=== PATIENT | male | born 1955 | race Caucasian/White ===

== ENCOUNTER 2019-07-18 02:11 | Emergency (ER) | payer OTHER, SELFPAY ==
--- NOTE | ~2019-07-18 | CT_ITS ---
EXAMINATION: CT abdomen pelvis w con DATE: 07/18/2019 03:38 INDICATION: Epigastric abdominal pain TECHNIQUE: Computed tomography (CT) of the abdomen and pelvis was performed with 100 cc Omnipaque 350 intravenous contrast. Automated exposure control and iterative reconstruction technique were employe d. Exam dose: 1595.20 mGy-cm total exam DLP. COMPARISON: 07/24/2013 CT abdomen pelvis FINDINGS: The lung bases are clear of infiltrate or consolidation. Cardiomegaly. No pericardial or pl eural effusion. No hepatic, splenic, pancreatic, adrenal or renal space-occupying mass lesion. No bile duct or pancre atic duct dilatation. Mild splenomegaly; spleen measures 14 cm approximate length. No urinary tract calculus or hydroureteronephrosis. The urinary bladder is unremarkable. There is pro state enlargement and calcification. No evidence of appendicitis. No bowel obstruction, pneumatosis, bowel wall thickening, intraperitonea l free air. Normal caliber of the abdominal aorta. No intraperitoneal or retroperitoneal or pelvic mass lesion or adenopathy or ascites. There is a fat-containing umbilical hernia measuring up to 3.4 cm vertical dimension. Diffuse idiopathic skeletal hyperostosis of the thoracic spine. Multilevel degenerative disc disease of the lumbar spine, with associated mild retrolisthesis at L2-3 and L4-5. IMPRESSION: Mild splenomegaly Reviewed, dictated and finalized at [facility]. Reviewed, dictated and finalized at [facility]. IMPRESSION: Mild splenomegaly
[2019-07-18 02:18] VITALS: BP 171/80; PULSE 84; RESP 18; TEMP 36.8; O2SAT 97
--- NOTE | 2019-07-18 02:20 | ED.ABDPAIN ---
HPI - Abdominal Pain General Chief Complaint: Abdominal Pain Stated Complaint: epigastric pain Time Seen by Provider: 07/18/19 02:20 History of Present Illness HPI narrative: Severe, 9/10 epigastric pain for the past 4 hours. Burning in quality. No radiation. Started after eating. Associated ith nausea. He tried peptobismal and ibuprofen with minimal improvement. Related Data Home Medications Medication Instructions Recorded Confirmed lithium carbonate 450 mg PO BID 03/22/19 losartan 100 mg PO DAILY 03/22/19 propranolol 20 mg PO DAILY 03/22/19 risperidone 2 mg PO HS 03/22/19 03/22/19 Allergies Allergy/AdvReac Type Severity Reaction Status Date / Time No Known Allergies Allergy Verified 07/18/19 04:17 Review of Systems Review of Systems: All systems reviewed & are unremarkable except as noted in HPI and below Constitutional: Constitutional: Denies fever(s) Cardiovascular: Cardiovascular: Denies chest pain Respiratory: Respiratory: Denies dyspnea Gastrointestinal: Gastrointestinal: Reports abdominal pain, Reports heartburn and Reports nausea PMFSH Past Medical History Medical History Bipolar disorder Depression HTN (hypertension) Leg fracture, right Surgical History Surgical History No pertinent past surgical history Social History Social History Smoking status: Never smoker Alcohol intake: current Gender identity (if verbalized by the patient): Male Exam Const: General: no acute distress and alert Nutritional Appearance: obese Orientation/consciousness: patient oriented x3 HENMT: Head: normal to inspection Resp: Effort & Inspection: normal respiratory effort Auscultation: clear to auscultation bilaterally Cardio: Rate: regular rate Rhythm: regular rhythm GI: GI Palp: Yes Soft to palpation, Yes Tenderness to palpation present (GI) (epigastric), No Guarding due to palpation present (GI) and No Rebound tenderness present Auscultation: normal bowel sounds Skin: General skin exam: normal color Neuro: General: patient oriented x3, moves all extremities and CN's II-XI intact bilaterally Speech: normal speech Extrem: General: normal to inspection Course Vital Signs Vital signs: Vital Signs Temperature 36.8 C 07/18/19 02:18 Pulse Rate 84 07/18/19 02:18 Respiratory Rate 18 07/18/19 02:18 Blood Pressure 171/80 H 07/18/19 02:18 Pulse Oximetry 97 07/18/19 02:18 Temperature 37.2 C 07/18/19 04:14 Pulse Rate 61 07/18/19 04:14 Respiratory Rate 18 07/18/19 04:14 Blood Pressure 186/65 H 07/18/19 04:14 Pulse Oximetry 97 07/18/19 04:14 MDM - Abdominal Pain MDM Narrative Medical decision making narrative: Moderate improvement in symptoms. Ct does not show any cause for symptoms. Labs unrevealing Differential Diagnosis Differential diagnosis: Likely abdominal pain and other (acute cholecystitis, gastritis, GERD, PUD) Medical Records Attestation: I reviewed the patient's medical records. Lab Data Attestation: I reviewed the patient's lab results. Result diagrams: 07/18/19 02:26 07/18/19 02:26 Labs: Lab Results 07/18/19 07/18/19 Range/Units 02:26 02:26 WBC 10.2 H (4.5-10.0) K/mm3 RBC 5.21 (4.6-6.20) M/mm3 Hgb 15.9 (14.0-18.0) g/dL Hct 47.6 (42.0-52.0) % MCV 91.4 (80-100) fl MCH 30.5 (26-34) pg MCHC 33.4 (32-36) g/dl RDW 13.2 (11.5-14.5) % Plt Count 214 (150-375) k/mm3 MPV 9.6 (7.4-10.4) fl Immature Gran % (Auto) 0.4 (0-0.5) % Neut % (Auto) 75.6 H (45.5-73.1) % Lymph % (Auto) 15.8 L (18.3-44.2) % [place] % (Auto) 7.1 (2.6-8.5) % Eos % (Auto) 0.8 (0-4.4) % Baso % (Auto) 0.3 (0.2-1.2) % Lymph # (Auto) 1.61 (0.9-3.2) K/mm3 [place] # (Auto) 0.7 H (0.1-0.6) K/mm3 Eos # (Auto) 0.1
[2019-07-18 02:34] LABS: Basophils Percent Auto 0.3 % (0.2-1.2); Eosinophils Absolute Auto 0.1 K/mm3 (0-0.3); Eosinophils Percent Auto 0.8 % (0-4.4); Hematocrit 47.6 % (42.0-52.0); Hemoglobin 15.9 g/dL (14.0-18.0); Immature Granulocyte Absolute 0.04 K/mm3 (0.00-0.031); Immature Granulocyte Percent A 0.4 % (0-0.5); Lymphocytes Absolute Auto 1.61 K/mm3 (0.9-3.2); Lymphocytes Percent Auto 15.8 % (18.3-44.2); Mean Corpuscular HGB Conc 33.4 g/dl (32-36); Mean Corpuscular Hemoglobin 30.5 pg (26-34); Mean Corpuscular Volume 91.4 fl (80-100); Mean Platelet Volume 9.6 fl (7.4-10.4); Monocytes Absolute Auto 0.7 K/mm3 (0.1-0.6); Monocytes Percent Auto 7.1 % (2.6-8.5); Neutrophils Absolute Auto 7.7 K/mm3 (1.3-6.7); Neutrophils Percent Auto 75.6 % (45.5-73.1); Platelet Count Result 214 k/mm3 (150-375); Red Blood Count 5.21 M/mm3 (4.6-6.20); Red Cell Distribution Width 13.2 % (11.5-14.5); White Blood Count 10.2 K/mm3 (4.5-10.0)
[2019-07-18] MEDS: PANTOPRAZOLE SODIUM IV 40 MG VIAL IV PUSH (02:36)
[2019-07-18 03:02] LABS: Alanine Aminotransferase 233 U/L (4-50); Albumin Level 4.9 g/dL (3.5-5.1); Alkaline Phosphatase 151 U/L (38-126); Aspartate Amino Transferase 264 U/L (17-59); Bilirubin,Total 2.9 mg/dL (0.2-1.3); Blood Urea Nitrogen 17 mg/dL (9-20); Calcium 9.3 mg/dL (8.4-10.2); Carbon Dioxide 22 mmol/L (22-30); Chloride 105 mmol/L (98-107); Estimated CRCL calculation 82 ml/min; Estimated Glomerular Filt Rate > 60; Glucose 139 mg/dL (75-110); Lipase 121 U/L (23-300); Potassium 4.3 mmol/L (3.4-5.0); Sodium 138 mmol/L (137-145)
[2019-07-18 04:14] VITALS: BP 186/65; PULSE 61; RESP 18; TEMP 37.2; O2SAT 97
[2019-07-18] MEDS: ONDANSETRON INJ 4 MG/2 ML VIAL IV PUSH (04:27)
== END 2019-07-18 05:10 | disposition home or self-care (01) ==
PROVIDERS: Emergency Provider Emergency Medicine; PCP Internal Medicine
DX: R10.13 Epigastric pain (principal); F31.9 Bipolar disorder, unspecified; I10 Essential (primary) hypertension
CPT/HCPCS: 36415; 74177; 80053; 83690; 85025; 96374; 96375; 99284; A9270; C9113; J2405; J3010; Q9967

== ENCOUNTER → 2020-05-13 13:56 | Outpatient (CLI) | payer OTHER, SELFPAY ==
--- NOTE | ~2020-05-13 | US_ITS ---
EXAMINATION: US soft tissue head and neck DATE: 05/13/2020 14:27 INDICATION: Palpable lesion at the neck posterior to the right ear TECHNIQUE: Multiple grayscale and Doppler ultrasound images of the region of concern posterior to the right ear were obtained. COMPARISON: None FINDINGS: Normal appearance to the subcutaneous fat at the region of concern. Smooth echogenic caudal margin to the underlying mastoid process. No abnormal masses or fluid collections identified. IMPRESSION: 1. Normal appearance to the subcutaneous tissues at the region of concern posterior to the right ear. No abnormal masses or fluid collections identified. Reviewed, dictated and finalized at location [facility]. IMPRESSION: 1. Normal appearance to the subcutaneous tissues at the region of concern poste rior to the right ear. No abnormal masses or fluid collections identified.
== END ==
PROVIDERS: PCP Student in an Organized Health Care Education/Training Program; Visit Provider Student in an Organized Health Care Education/Training Program
DX: L98.9 Disorder of the skin and subcutaneous tissue, unspecified (principal)
CPT/HCPCS: 76536

== ENCOUNTER → 2020-09-22 09:31 | Outpatient (CLI) | payer OTHER, SELFPAY ==
--- NOTE | ~2020-09-22 | US_ITS ---
EXAMINATION: US aorta [facility] DATE: 09/22/2020 10:20 INDICATION: Abdominal aortic aneurysm screening with risk factors of hypertension and prior smoking TECHNIQUE: Grayscale, color Doppler, and pulsed Doppler images of the aorta and common iliac arteries were obtained. COMPARISON: None. FINDINGS: The proximal aorta measures 2.3 cm. The mid aorta measures 2.3 cm. The distal aorta measures 2.1 cm. The right common iliac artery measures 1.2 cm. The left common iliac artery measures 1.4 cm. IMPRESSION: 1. Normal caliber abdominal aorta. Reviewed, dictated and finalized at location A.
== END ==
PROVIDERS: PCP Student in an Organized Health Care Education/Training Program; Visit Provider Student in an Organized Health Care Education/Training Program
DX: Z13.6 Encounter for screening for cardiovascular disorders (principal); Z87.891 Personal history of nicotine dependence
CPT/HCPCS: 76706